=== PATIENT | male | born 1990 | race Caucasian/White ===

== ENCOUNTER 2020-07-17 17:38 | Emergency (ER) | payer BC, MEDICAID, OTHER ==
[2020-07-17] MEDS ORDERED: Sodium Chloride 0.9% 10 ML Syringe FLUSH PRN (17:43)
[2020-07-17] MEDS ORDERED: Ondansetron 4 MG/2 ML SDV IVPUSH ONE (17:44)
[2020-07-17] MEDS ORDERED: Sodium Chloride 0.9% 1,000 ML IV ONE (17:44)
--- NOTE | 2020-07-17 18:23 | EDM.PDOC ---
ED HPI GENERAL MEDICAL PROBLEM - General Stated Complaint: SOB Time Seen by Provider: 07/17/20 17:40 Source of Information: Reports: Patient History Limitations: Reports: No Limitations - History of Present Illness INITIAL COMMENTS - FREE TEXT/NARRATIVE: Pt. presents to ER with complaints of shortness of breath. Pt. 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 He states that he and 2 coworkers installed a large carpet that was extremely heavy (he states that it weighed 2000 lbs). He states that he overexerted himself. He was diaphoretic, which is a somewhat common problem for his according to his medical records. He states that when he came home tonight he vomited and was feeling extremely fatigued and short of breath. He states that he began experiencing hyperventilation and comp lains of tingling in his fingers and toes. 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 He has undergone radiofrequency ablation in 1995. 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 One was totally ablated, the second partially. He continued to experience tachycardia and had a second ablation. He had a pacemaker placed in 2019. He states that it has not been pacing him and his physiologic rate has been well controlled for some time. Pt. denies any recent illness. Denies any cough. No chest congestion. No fever or chills. Denies any sore throat or rhinorrhea. On arrival to ER, he reported feeling somewhat better since he has started to control his breathing. Denies any abdominal pain. No diarrhea, bloody stools, or further vomiting. He does complain of some nausea. Onset: Today Onset Date: 07/17/20 Location: Reports: Chest, Generalized - Related Data Allergies Allergy/AdvReac Type Severity Reaction Status Date / Time No Known Allergies Allergy Verified 07/17/20 18:01 Home Meds: Home Meds Cyclobenzaprine [Flexeril] 10 mg PO TID PRN #30 tab 10/28/14 [Rx] Diclofenac Sodium [Voltaren] 25 mg PO BID #30 tablet 10/28/14 [Rx] Ondansetron [Zofran ODT] 4 mg PO Q6H PRN #30 tab.dis 10/28/14 [Rx] Social & Family History - Living Situation & Occupation Occupation: Student ED ROS GENERAL - Review of Systems Review Of Systems: See Below Constitutional: Reports: Malaise, Fatigue, Diaphoresis HEENT: Reports: No Symptoms Respiratory: Reports: Shortness of Breath. Denies: Wheezing, Pleuritic Chest Pain, Cough Cardiovascular: Reports: Dyspnea on Exertion, Lightheadedness. Denies: Chest Pain, Edema, Palpitations Endocrine: Reports: No Symptoms GI/Abdominal: Reports: Nausea, Vomiting : Reports: No Symptoms Musculoskeletal: Reports: No Symptoms Skin: Reports: Diaphoresis Neurological: Reports: No Symptoms Psychiatric: Reports: No Symptoms Hematologic/Lymphatic: Reports: No Symptoms Immunologic: Reports: No Symptoms ED EXAM, GENERAL - Physical Exam Exam: See Below Exam Limited By: No Limitations General Appearance: Alert, WD/WN, No Apparent Distress Eye Exam: Bilateral Eye: EOMI, PERRL Head: Atraumatic, Normocephalic Neck: Normal Inspection, Supple, Non-Tender Respiratory/Chest: No Respiratory Distress, Lungs Clear, Normal Breath Sounds, No Accessory Muscle Use, Chest Non-Tender, Other (Mildly tachypneic. This improved with coaching and as the patient relaxed.) Cardiovascular: Normal Peripheral Pulses, Regular Rate, Rhythm, No Edema, No JVD Peripheral Pulses: 4+: Radial (L) GI/Abdominal: Soft, Non-Tender, No Organomegaly, No Distention, No Mass (Male) Exam: Deferred Rectal (Males) Exam: Deferred Back Exam: Normal Inspection, Full Range of Motion Extremities: Normal Inspection, Normal Range of Motion, Non-Tender, No Pedal Edema, Normal Capillary Refill Neurological: Alert, Oriented, CN II-XII Intact, Normal Cognition, Normal Gait, Normal Reflexes, No Motor/Sensory Deficits Psychiatric: Anxious, Tearful Skin Exam: Warm, Dry, Intact, Normal Color, No Rash, Diaphoretic Lymphatic: No Adenopathy EKG INTERPRETATION EKG Interpretation Comments: WPW pattern, unchanged from previous. Course - Vital Signs Last Recorded V/S: Last Vital Signs Temp 36.9 C 07/17/20 18:01 Pulse 94 07/17/20 18:50 Resp 20 07/17/20 18:41 BP 123/65 07/17/20 18:50 Pulse Ox 97 07/17/20 18:50 - Orders/Labs/Meds Orders: Active Orders 24 hr Category Date Time Status EKG Documentation Completion [RC] STAT Care 07/17/20 17:43 Active Sodium Chloride 0.9% [Saline Flush] Med 07/17/20 17:43 Active 10 ml FLUSH ASDIRECTED PRN Peripheral IV Insertion Adult [OM.PC] Routine Oth 07/17/20 17:43 Ordered Medication Orders Sodium Chloride (Saline Flush) 10 ml FLUSH ASDIRECTED PRN PRN Reason: Keep Vein Open Last Admin: 07/17/20 18:00 Dose: 10 ml Documented by: DARIUSZ Labs: Laboratory Tests 07/17/20 07/17/20 Range/Units 17:52 17:52 WBC 9.6 (4.0-10.0) x10^3/uL RBC 5.07 (4.5-6.0) x10^6/uL Hgb 15.9 (14.0-18.0) g/dL Hct 43.2 (40.0-52.0) % MCV 85.2 (78.0-93.0) fL MCH 31.4 (26.0-32.0) pg MCHC 36.8 H (32.0-36.0) g/dL RDW Coeff of Josette 13.0 (10.0-15.0) % Plt Count 231 (130-400) x10^3/uL Neut % (Auto) 62.2 (50.0-80.0) % Lymph % (Auto) 28.0 (25.0-50.0) % [place] % (Auto) 8.8 (2.0-11.0) % Eos % (Auto) 0.6 (0.0-4.0) % Baso % (Auto) 0.4 (0.2-1.2) % Sodium 138 (136-145) mmol/L Potassium 3.9 (3.5-5.1) mmol/L Chloride 101 (98-107) mmol/L Carbon Dioxide 19 L D (21-32) mmol/L Anion Gap 21.9 H (10-20) mmol/L BUN 26 H (7-18) mg/dL Creatinine 1.3 (0.70-1.30) mg/dL Est Cr Clr Drug Dosing 79.80 mL/min Estimated GFR (MDRD) > 60 Glucose 87 (74-106) mg/dL Calcium 9.5 (8.5-10.1) mg/dL Corrected Calcium 9.02 (8.5-10.1) mg/dL Magnesium 1.8 (1.8-2.4) mg/dL Total Bilirubin 0.7 (0.2-1.0) mg/dL AST 37 (15-37) U/L ALT 40 (16-63) U/L Alkaline Phosphatase 91 (46-116) U/L Troponin I 0.059 H* (<=0.056) ng/mL C-Reactive Protein 0.4 (<=0.9) mg/dL NT-Pro-B Natriuret Pep 228 H (<=125) pg/mL Total Protein 8.0 (6.4-8.2) g/dL Albumin 4.6 (3.4-5.0) g/dL Globulin 3.4 Albumin/Globulin Ratio 1.35 TSH, Ultra Sensitive 2.946 (0.358-3.74) uIU/mL Meds: Medications Generic Name Dose Route Start Last Admin Trade Name Freq PRN Reason Stop Dose Admin Sodium Chloride 10 ml 07/17/20 17:43 07/17/20 18:00 Saline Flush FLUSH 10 ml ASDIRECTED PRN Administration Keep Vein Open Discontinued Medications Generic Name Dose Route Start Last Admin Trade Name Freq PRN Reason Stop Dose Admin Sodium Chloride 1,000 mls @ 1,000 mls/hr 07/17/20 17:44 07/17/20 17:59 Normal Saline IV 07/17/20 18:43 1,000 mls/hr .BOLUS ONE Administration Ondansetron HCl 4 mg 07/17/20 17:44 07/17/20 17:59 Zofran IVPUSH 07/17/20 17:45 4 mg ONETIME ONE Administration - Radiology Interpretation Free Text/Narrative:: chest x-ray negative for acute pathology Departure - Departure Time of Disposition: 19:08 Disposition: Home, Self-Care 01 Clinical Impression: Elevated troponin, NSTEMI (non-ST elevated myocardial infarction) - Discharge Information Sepsis Event Note (ED) - Focused Exam Vital Signs: Vital Signs Temp Pulse Resp BP Pulse Ox 07/17/20 18:50 94 123/65 97 07/17/20 18:41 88 20 117/75 96 07/17/20 18:01 36.9 C 100 28 H 112/85 100 - Problem List Review Problem List Initiated/Reviewed/Updated: Yes - My Orders Last 24 Hours: My Active Orders 07/17/20 17:43 EKG Documentation Completion [RC] STAT Sodium Chloride 0.9% [Saline Flush] 10 ml FLUSH ASDIRECTED PRN Peripheral IV Insertion Adult [OM.PC] Routine - Assessment/Plan Last 24 Hours: My Active Orders 07/17/20 17:43 EKG Documentation Completion [RC] STAT Sodium Chloride 0.9% [Saline Flush] 10 ml FLUSH ASDIRECTED PRN Peripheral IV Insertion Adult [OM.PC] Routine Plan: Pt. will be transported to [facility]. Dr. Ca was accepting. Pt. will be transported via [facility] ground ambulance. Pt. is not experiencing any chest pain or shortness of breath at this time. In discussing the case with Dr. Ca, will hold off from anticoagulation at this time. He was given his dose of aspirin 324mg PO. Pt. was given a liter of NS and zofran 4mg IV and reported significant improvement in how he feels. Awaiting bed at this time. All questions were answered.
--- NOTE | 2020-07-17 18:39 | CR ---
[id number] RAD/RAD Chest PA And Lateral EXAM: FRONTAL AND LATERAL CHEST INDICATION: SHORTNESS OF BREATH. COMPARISON: May 05, 2012. DISCUSSION: Interval placement of a left subclavian approach pacemaker with leads in the RA and RV. Normal heart size. Clear lungs. IMPRESSION: 1. No acute findings. Nik Vaz MD 07/17/20 1524 Thank you for allowing us to participate in the care of your patient.
[2020-07-17 18:42] LABS: ANION GAP 21.9 mmol/L (10-20); CHLORIDE,CL 101 mmol/L (98-107); SODIUM,NA 138 mmol/L (136-145)
[2020-07-17] MEDS ORDERED: Aspirin 81 MG Tab.Chew PO ONE (19:12)
== END 2020-07-17 20:50 | disposition home or self-care (01) ==
LOC: VM.ED 17:38
DX: I21.4 Non-ST elevation (NSTEMI) myocardial infarction (principal); R79.89 Other specified abnormal findings of blood chemistry
CPT/HCPCS: 71046; 80053; 83735; 83880; 84443; 84484; 85025; 86140; 93005; 93010; 96361; 96374; 99284; 99285-25; A9270-GY; J2405; J7030

== ENCOUNTER 2022-02-20 21:45 | Emergency (ER) | payer BC, MEDICAID ==
[2022-02-20 23:03] LABS: CORONAVIRUS COVID-19 NAA NEGATIVE (NEGATIVE); RESPIRATORY SYNCYTIAL VIR NAA NEGATIVE (NEGATIVE)
[2022-02-20] MEDS ORDERED: Take Home: Amoxicillin/Clavulanate K 875-125 MG Tab, 2 Tab Pack PO ONE (23:05)
== END 2022-02-20 23:20 | disposition home or self-care (01) ==
LOC: VM.ED 21:45
DX: J02.9 Acute pharyngitis, unspecified (principal); Z20.822 Contact with and (suspected) exposure to COVID-19
CPT/HCPCS: 0241U; 87651; 99283; A9270